=== PATIENT | female | born 1990 | race Caucasian/White ===

== ENCOUNTER → 2019-09-22 15:23 | Outpatient (CLI) | payer BC, SELFPAY ==
[2019-09-25 17:02] LABS: HPV Reflexed? NOT INDICATED
== END ==
PROVIDERS: Visit Provider Obstetrics & Gynecology
DX: Z12.4 Encounter for screening for malignant neoplasm of cervix (principal)
CPT/HCPCS: 88175; G0145

== ENCOUNTER 2021-02-24 22:25 | Emergency (ER) | payer BC, SELFPAY ==
[2021-02-24 22:27] VITALS: BP 105/75; PULSE 118; RESP 18; TEMP 36.2; O2SAT 94; BMI 23.8
--- NOTE | 2021-02-24 22:57 | RAD_ITS ---
STUDY: X-RAY - LEFT FOOT CLINICAL: Female, 30 years old. injury TECHNIQUE: 3 view(s) of the foot. COMPARISON: None. FINDINGS: Normal talus, calcaneus, and tarsal bones. Normal visualized subtalar, talonavicular, calcaneocuboid, tarsal and tarsometatarsal articulations. Normal metatarsi. Normal metatarsophalangeal joint of the great toe. Normal tibial and fibular sesamoid bones. Normal interphalangeal joint of the great toe. Normal phalanges of the great toe. Normal second through fifth metatarsophalangeal joints. Normal interphalangeal joints and phalanges of the lesser toes. The soft tissue structures are unremarkable. There is no demonstrated fracture. RAD/Foot min 3 Views IMPRESSION: Normal x-ray examination of the foot. Electronically Signed: Fatoumata Huber MD at 23:18 EDT , Service support ,
--- NOTE | 2021-02-24 23:37 | ED.DCSUM_ITS ---
History of Present Illness Chief Complaint: Lower Extremity Injury Informant: Patient Onset: Days - 10 Narrative: Patient presents for reevaluation and reinjury of left foot today. Initial injury on February 12 when a 50 pound Doberman pinscher stepped on her foot. She s tates she was seen at [place] and had x-rays that were negative. She had crutches and Brijesh wrap. She states she followed up and stated they only saw a wet read and there was no final read. She was getting better yesterday went for massage where they worked on her foot states reaggravated started noticed some swelling and discomfort this morning. This evening the dog excellently stepped on her foot again causing increasing pain. She took ibuprofen prior to arrival. Denies any past medical history. Denies any paresthesias. Prior similar symptoms: Yes Past Medical History - Allergies and Home Meds Allergies/Adverse Reactions: Allergies amoxicillin Adverse Reaction (Verified 02/24/21 22:26) Nausea Primary Care Physician: Care Physician,No Primary [Primary Care Provider] - Past Medical History: None Smoking Status: Never smoker Review of Systems General: Denies: Chills, Fever, Sweats Eyes: Denies: Visual changes - bilaterally, Diplopia ENT: Denies: Rhinorrhea, Sore throat Cardiovascular: Denies: Chest pain, Palpitations Respiratory: Denies: Dyspnea, Cough, Dyspnea on exertion Gastrointestinal: Denies: Abdominal pain, Nausea, Vomiting, Diarrhea, Melena, Hematochezia Genitourinary: Denies: Dysuria, Hematuria, Frequency Musculoskeletal: Reports: Arthralgias. Denies: Back pain, Extremity Pain Skin: Denies: Rash, Wounds Neurological: Denies: Headache, Weakness, Numbness Physical Exam Vital Signs/Narrative: Vital Signs Temp Pulse Resp BP Pulse Ox 02/24/21 22:27 97.2 F L 118 H 18 105/75 94 Inital Vital Signs reviewed: Yes General: Well nourished, Well developed, No Acute Distress Head: Normocephalic, Atraumatic Eyes: Perrl, EOMI ENT: Moist mucous membranes, No rhinorrhea Neck: Supple, Nontender Cardiovascular: Regular rhythm, No murmurs, Tachycardia Respiratory: No distress, CTA bilaterally, Chest nontender Abdomen: Soft, Nontender, Nondistended, Normal bowel sounds Back: Nontender, Normal Inspection Extremities: - - Left lower extremity: No knee or ankle bony tenderness. There is midfoot and proximal fifth base tenderness. Swelling of the foot. Skin intact. Neurovascular intact. Skin: Normal color, No rash Neurological: Alert, Oriented x3, Cranial nerves II-XII grossly intact, Normal Strength, Normal Sensation Psychological: Normal affect, Normal Mood Diagnostic/Tx/Re-eval 3 view x-ray of the left foot: No fracture or dislocation reviewed by myself and read by radiology. Clinical Impression(s) from Imaging Studies Foot X-Ray 02/24/21 22:57 IMPRESSION: Normal x-ray examination of the foot. Electronically Signed: Fatoumata Huber MD at 23:18 EDT , Service support , - Medical Decision Making Patient declined any additional medications. She declined ice. X-ray negative. Discussed with patient with her injury initially 10 days ago, there was no occult fractures from that due to no calcifications. She will be provided Aircast for stability should continue using her crutches she will continue NSAIDs [id number]. She will follow-up as an outpatient. All questions were answered. ED Disposition - Plan for ED Patient: Disposition: Home or Assisted Living Diagnosis: Contusion of left foot Instructions: ED Contusion, Lower Extremity Referrals: Care Physician,No Primary [Primary Care Provider] - Additional Instructions: Continue Brijesh wrap and Aircast crutches as needed. Use ibuprofen 600 mg every 6 hours for the next 2 days then as needed. Follow-up for reevaluation in 1-2 weeks if symptoms do not improve.
== END 2021-02-25 00:02 | disposition home or self-care (01) ==
PROVIDERS: Emergency Provider Emergency Medicine
DX: S90.32XA Contusion of left foot, initial encounter (principal); W54.8XXA Other contact with dog, initial encounter; Y93.89 Activity, other specified; Y92.89 Other specified places as the place of occurrence of the external cause; Y99.8 Other external cause status
CPT/HCPCS: 73630; 99283

== ENCOUNTER → 2021-04-12 16:06 | Outpatient (CLI) | payer BC, SELFPAY ==
[2021-04-12 15:34] VITALS: BMI 23.8
[2021-04-12 17:30] LABS: ALB/GLOB Ratio 0.6 RATIO (0.9-2.4); AST(SGOT) 12 U/L (15-37); Absolute Neutrophil Count 6.3 X10^3/uL (2.0-7.7); Alanine Aminotransfer ALT/SGPT 11 U/L (13-56); Albumin, Serum 3.2 g/dL (3.2-5.0); Alkaline Phosphatase 120 U/L (45-117); Anion Gap 6 (5-15); BUN 9 mg/dL (7-18); BUN/Creat Ratio 11.9 RATIO (10-20); Basophil# 0.06 X10^3/uL; Basophil% 0.5 % (0-1); Calcium,Total 10.7 mg/dL (8.5-10.1); Chloride 105 mmol/L (98-107); Creatinine, Serum 0.76 mg/dL (0.55-1.02); EST Glomerular Filtration Rate 96 mL/min (>60); Eosinophil# 0.05 X10^3/uL; Eosinophils% 0.5 % (0-5); Est Glom Filt Rate - Afr Amer 116 mL/min (>60); Globulin 5.1 g/dL (2.2-4.2); Glucose 81 mg/dL (74-106); Hematocrit 41.1 % (37-47); Hemoglobin 13.2 g/dL (12.0-15.0); Lymphocyte % 33.6 % (19-41); Mean Corp Hgb Conc 32.1 g/dL (32-36); Mean Corpuscular Volume 90.3 fL (81-99); Mean Platelet Vol. 10.5 fl (6.2-12.0); Monocyte# 0.87 X10^3/uL; Monocyte% 7.9 % (0-10); NRBC Flagged by Analyzer 0 % (0-5); Neutrophil % 57.3 % (47-70); Platelet Count 432 K/mm3 (150-450); Protein, Total 8.3 g/dL (6.4-8.2); RBC Distribution Width CV 12.6 % (11.6-14.6); RBC Distribution Width SD 41.9 fl (35.1-43.9); Red Blood Count 4.55 M/mm3 (4.2-5.4); Rheumatoid Factor < 10.0 IU/mL (<15); Sodium Level 136 mmol/L (136-145)
[2021-04-12 18:26] LABS: Erythrocyte Sedimentation Rate 66 mm/hr (0-30)
[2021-04-13 13:15] LABS: Ferritin 109 ng/mL (8-252)
[2021-04-15 15:11] LABS: CCP IgG Antibodies 4 units (0-19)
[2021-04-15 15:22] LABS: ANTINUCLEAR ANTIBODIES DIRECT Negative (Negative)
== END ==
PROVIDERS: PCP Internal Medicine; Referring Provider Internal Medicine; Visit Provider Internal Medicine
DX: M19.90 Unspecified osteoarthritis, unspecified site (principal); M79.672 Pain in left foot
CPT/HCPCS: 36415; 80053; 82728; 85025; 85652; 86038; 86140; 86200; 86225; 86235; 86431

== ENCOUNTER → 2023-11-15 | Outpatient (CLI) | payer BC, SELFPAY ==
--- OUTSIDE RECORDS SUMMARY | 2023-11-15 14:47 | XMS RPT_ITS | CCD ---
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 Name Role Phone Celeste CAMARENA, Dea Evans Primary Care Provider Dima CAMARENA, Amrik Ramirez Primary Care Provider Randi CAMARENA, Esa Primary Care Provider [phone] NUNU QUINN Attending Unavailable MOREMARCOT, AMRIK Primary Care Unavailable MOREAMRIK BOURGEOIS Attending Unavailable EFREN DAILEY Attending Unavailable ESA BURGOS Primary Care Unavailable MOREHART, AMRIK Primary Care Unavailable NUNU QUINN Attending Unavailable MOREHART, AMRIK Primary Care Unavailable SALIMA ORTEGA Attending Unavailbowen RUIZ MD, JEFF Attending Unavailable Allergies Allergy Classification Reported Allergen(s) Allergy Type Date of Onset Reaction(s) Facility (10 sources) Amoxicillin Drug Allergy 04-01-2019 Nausea Only [facility] Medications Current Medications Medication Drug Class(es) Dates Sig (Normalized) Sig (Original) drospirenone 3 mg / ethinyl estradiol 0.02 mg oral tablet (9 sources) Progestin, Estrogen Start: 07-31-2023 End: 07-30-2024 drospirenone-ethin yl estradiol (Nela, Gianvi) 3-0.02 MG tablet Take 1 tablet by mouth daily. Skip placebo pills 84 tablet 4 07/31/2023 07/30/2024 Active Completed/Discontinued Medications Medication Drug Class(es) Dates Sig (Normalized) Sig (Original) predniSONE 5 mg oral tablet (1 source) Start: 05-29-2021 predniSONE (DELTASONE) 5 mg tablet Indications: Reactive arthritis (HCC) Take one and one half tablet daily. Total of 7.5 mg. 100 tablet 2 05/29/2021 Active Problems Active Problems Problem Classification Problem Date Documented Da te Episodic/Chronic Anxiety disorders (20 sources) Generalized anxiety disorder; Translations: [Generalized anxiety disorder] Onset: 11-28-2022 Chronic Contraceptive and procreative management (3 sources) Encounter for other general counseling and advice on contraception; Translations: [Patient encounter status] Onset: 11-28-2022 Episodic Headache; including migraine (10 sources) Intractable menstrual status migrainosus; Translations: [Menstrual migraine, intractable, with status migrainosus] Onset: 02-13-2023 02-13-2023 Chronic Headache; including migraine (2 sources) Headache; Translations: [Nonintractable headache, unspecified chronicity pattern, unspecified headache type] Episodic Headache; including migraine (2 sources) Headache; including migraine; Translations: [Headache, unspecified] Onset: 01-29-2023 Infective arthritis and osteomyelitis (except that caused by tuberculosis or sexually transmitted disease) (2 sources) Reactive arthritis; 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, unspecified site] Onset: 05-29-2021 Episodic Nonspecific chest pain (1 source) Chest pain; Translations: [Other chest pain] Episodic Other gastrointestinal disorders (2 sources) Diarrhea; Translations: [Diarrhea, unspecified] Onset: 05-29-2021 Episodic Viral infection (3 sources) Human papilloma virus infection; Translations: [Papillomavirus as the cause of diseases classified elsewhere] Onset: 02-20-2023 Episodic Past or Other Problems Problem Classification Problem Date Documented Da te Episodic/Chronic Other screening for suspected conditions (not mental disorders or infectious disease) (2 sources) Encounter for screening for malignant neoplasm of cervix; Translations: [Encounter for screening for malignant neoplasm of cervix] Onset: 12-19-2022 Episodic Results Test Name Value Interpretation Reference Range Facil ity Vital Signs Date Time Vital Sign Value Performing Clinician Faci lity 07-31-2023 14:32-0400 Body mass index (BMI) [Ratio] 28.55 kg/m2 Nunu Quinn MD Work Phone: [facility] 07-31-2023 14:32-0400 Body weight 79.02 kg Nunu Quinn MD Work Phone: [facility] 07-31-2023 14:32-0400 Diastolic blood pressure 70 mm[Hg] Nunu Quinn MD Work Phone: [facility] 07-31-2023 14:32-0400 Heart rate 85 /min Nunu Quinn MD Work Phone: [facility] 07-31-2023 14:32-0400 Systolic blood pressure 116 mm[Hg] Nunu Quinn MD Work Phone: [facility] 05-01-2023 15:45-0400 Body height 166.4 cm Amrik Ch MD Work Phone: [facility] 05-01-2023 15:45-0400 Body mass index (BMI) [Ratio] 27.2 kg/m2 Amrik Ch MD Work Phone: [facility] 05-01-2023 15:45-0400 Body temperature 98.01 [degF] Amrik Ch MD Work Phone: [facility] 05-01-2023 15:45-0400 Body weight 75.3 kg Amrik Ch MD Work Phone: [facility] 05-01-2023 15:45-0400 Diastolic blood pressure 69 mm[Hg] Amrik Ch MD Work Phone: [facility] 05-01-2023 15:45-0400 Heart rate 72 /min Amrik Ch MD Work Phone: [facility] 05-01-2023 15:45-0400 Systolic blood pressure 107 mm[Hg] Amrik Ch MD Work Phone: [facility] 02-20-2023 15:25-0400 Body height 166.4 cm Nunu Quinn MD Work Phone: [facility] 02-20-2023 15:25-0400 Body mass index (BMI) [Ratio] 25.89 kg/m2 Nunu Quinn MD Work Phone: [facility] 02-20-2023 15:25-0400 Body weight 71.67 kg Nunu Quinn MD Work Phone: [facility] 02-20-2023 15:25-0400 Diastolic blood pressure 80 mm[Hg] Nunu Quinn MD Work Phone: [facility] 02-20-2023 15:25-0400 Heart rate 89 /min Nunu Quinn MD Work Phone: [facility] 02-20-2023 15:25-0400 Systolic blood pressure 126 mm[Hg] Nunu Quinn MD Work Phone: [facility] 01-29-2023 15:44-0400 Body height 166.4 cm Amrik Ch MD Work Phone: [facility] 01-29-2023 15:44-0400 Body mass index (BMI) [Ratio] 25.89 kg/m2 Amrik Ch MD Work Phone: [facility] 01-29-2023 15:44-0400 Body temperature 97.7 [degF] Amrik hC MD Work Phone: [facility] 01-29-2023 15:44-0400 Body weight 71.67 kg Amrik Ch MD Work Phone: [facility] 01-29-2023 15:44-0400 Diastolic blood pressure 72 mm[Hg] Amrik Ch MD Work Phone: [facility] 01-29-2023 15:44-0400 Heart rate 69 /min Amrik Ch MD Work Phone: [facility] 01-29-2023 15:44-0400 Systolic blood pressure 114 mm[Hg] Amrik Ch MD Work Phone: [facility] Encounters Encounter Date Encounter Type Care Provider Facility Start: 11-12-2023 End: 11-13-2023 ambulatory JEFF RUIZ MD Facility:[facility] Start: 07-31-2023 End: 07-31-2023 Office outpatient visit 15 minutes Nunu Quinn MD Work Phone: [facility] Procedures Date Procedure Procedure Detail Performing Clinician Start: 05-01-2023 Adult depression scr eening assessment Amrik Ch MD Work Phone: Start: 02-20-2023 Urine test visual color cmprsn meths Nunu Quinn MD Work Phone: Start: 12-19-2022 Microscopic observat ion [Identifier] in Cervix by Cyto stain Amrik Ch MD Work Phone: Plan of Treatment Date Care Activity Detail Author Start: 2041 Zoster Vaccines (1 of 2) Zoste r Vaccines (1 of 2) [facility] Start: 12-19-2027 Screening for malign ant neoplasm of cervix [facility] Start: 12-19-2025 Screening for malign ant neoplasm of cervix Pap Smear [facility] Start: 05-01-2024 Depression Screening Depression Scre ening [facility] Start: 12-25-2023 End: 12-25-2023 Patient encounter procedure [facility] Start: 07-31-2023 End: 07-31-2023 Patient encounter procedure 07/31/2023 2:30 PM EDT Office Visit [facility] [address] [place] [address] Nunu Quinn MD [address] [place] [address] [facility] Start: 07-19-2023 Influenza vaccination [facility] Start: 05-17-2023 Influenza vaccination Influenza Vacc ine (#1) [facility] Payers Date Payer Category Payer Unknown [id number] 2022 Unknown [id number] 2021 Unknown [employer] PPO [id number] 2021-Present PPO [id number] 1991 Unknown [id number] Social History Date Type Detail [facility] Start: 1990 Sex Assigned At Not on file [facility] Start: 01-18-2023 End: 07-31-2023 Exposure to SARS-CoV-2 (event) Not sure [facility] Start: 11-28-2022 [facility] Start: 11-28-2022 Tobacco use and exposure Smoke less tobacco non-user [facility] Start: 01-29-2023 End: 07-31-2023 Alcohol intake Current drinker of alcohol (finding) [facility] Start: 01-29-2023 End: 05-01-2023 Alcohol intake [facility] Start: 12-19-[address] [facility] Start: 1990 Sex Assigned At Female [facility] Start: 02-20-2023 End: 05-01-2023 Tobacco use panel [facility] Start: 11-28-2022 Gender identity Identifies as female gender (finding) [facility] Start: 11-28-2022 Sexual orientation Heterosexual (fin ding) [facility] Clinical Notes 05-29-2021 to 07-31-2023 Nunu Quinn MD - 07/31/2023 2:30 PM Cristal Linda LPN - 05/01/2023 3:30 PM Ja Ch MD - 05/01/2023 3:30 PM Cristal Linda LPN - 05/01/2023 3:30 PM EDTPatient Instructions Note Date & Type Note Facility 07-31-2023 History of Present illness Narrative HPI: Patient presents today to talk about options for control. She has been on control, OCPs, since her teens for regulation of her heavy cycles as well as menstrual migraines. Her symptoms are markedly improved on OCPs. Pt has questions about prolonged OCP use and Mirena. REVIEW OF SYSTEMS: Gen: denies weight loss, fatigue, fevers/chills : see HPI PHYSICAL EXAM: Vitals: 07/31/23 1432 BP: 116/70 Pulse: 85 Gen: normal appearance, NAD Neuro: AAOx3 Psych: normal affect Lungs: nonlabored breathing Chest: regular rate Anrdew was seen today for follow-up. Diagnoses and all orders for this visit: control counseling (Primary) Intractable menstrual migraine without status migrainosus Other orders - drospirenone-ethinyl estradiol (Nela, Gianvi) 3-0.02 MG tablet; Take 1 tablet by mouth daily. Skip placebo pills PLAN: -Answered all the questions -Plan for OCPs (desires Nela) for menstrual migraine suppression and will plan on IUD as well for period control and contraception -not planning in the future On this date, 07/31/23 I have spent 20 minutes reviewing previous notes, test results and face to face with the patient discussing the diagnosis and importance of compliance with the treatment plan as well as documenting on the day of the visit. documented in this encounter [facility] 05-01-2023 History of Present illness Narrative Pt asked if they have been to specialist,been in ER /hospitalized or had testing since last visit. No Images from the original note were not included. [facility] [address] [facility] [address] Dept: [phone] Dept Loc: [phone] Visit type: Established Reason for Visit: Follow-up (Discuss anxiety and meds) Assessment and Plan 1. Generalized anxiety disorder Continue lexapro 10 mg daily. Current treatment plan is effective, no change in therapy, orders and follow up as documented in EMR, reviewed compliance with lifestyle measures, reviewed diet, exercise and weight control, reviewed medications and side effects in detail Patient voiced full understanding and all questions were answered. Costs of various treatment options were considered in formulating this treatment plan with the patient. Patient was involved and agreeable in shared decision making. Follow up in about 6 months (around 10/31/2023) for anxiety . Subjective HPI Patient here for follow up for increased anxiety - lexapro is helping, says her states that she is easier to work with. Able to think more clearer, no further anger. Things going better - settled in house and job, mom tumor is gone after chemotherapy and she had a normal colposcopy. Not having to take hydroxyzine. Has been using meditation adrian, drinking more water, and exercising. Review of Systems Constitutional: Negative for activity change, chills and fever. HENT: Negative for congestion and rhinorrhea. Eyes: Negative for visual disturbance. Respiratory: Negative for cough and shortness of breath. Cardiovascular: Negative for leg swelling. Gastrointestinal: Negative for abdominal pain, constipation, diarrhea, nausea and vomiting. Endocrine: Negative for polyphagia and polyuria. Genitourinary: Negative for dysuria and urgency. Musculoskeletal: Negative for arthralgias and myalgias. Neurological: Negative for tremors, light-headedness and headaches. Allergies Allergen Reactions Amoxicillin Nausea Only nausea Outpatient Medications Prior to Visit Medication Sig Dispense Refill escitalopram (Lexapro) 10 MG tablet Take 1 tablet (10 mg) by mouth daily. 90 tablet 1 hydrOXYzine HCl (Atarax) 50 MG tablet take 1 tablet by mouth four times a day UNTIL DIRECTED TO STOP. TAKE ONLY NEEDED. norgestimate-ethinyl estradiol (Sprintec 28) 0.25-35 MG-MCG tablet Take 1 tablet by mouth daily. Skip placebo pills 112 tablet 2 drospirenone-ethinyl estradiol (Nela, Gianvi) 3-0.02 MG tablet Take 1 tablet by mouth daily. Skip placebo pills 112 tablet 3 No facility-administered medications prior to visit. Patient Active Problem List Diagnosis Generalized anxiety disorder Headache, menstrual migraine, intractable, with status migrainosus Past Medical History: Diagnosis Date Anxiety Headache Social History Tobacco Use Smoking status: Never Smokeless tobacco: Never Substance Use Topics Alcohol use: Yes Alcohol/week: 1.0 standard drink of alcohol Types: 1 Glasses of wine per week Comment: social No past surgical history on file. Family History Problem Relation Name Age of Onset Heart disease Father Cancer Mother 66 uterine Health Maintenance Topic Date Due HIV Screening Never done Varicella Vaccines (1 of 2 - 2-dose childhood series) Never done Depression Screening Never done Hepatitis C Screening Never done DTaP/Tdap/Td Vaccines (1 - Tdap) Never done COVID-19 Vaccine (2 - Booster for Jomar series) 07/07/2021 Influenza Vaccine (Season Ended) 2023 Cervical Cancer Screening 12/19/2027 Zoster Vaccines (1 of 2) 2041 Hepatitis B Vaccines Completed MMR Vaccines Completed HIB Vaccines Aged Out IPV Vaccines Aged Out Hepatitis A Vaccines Aged Out Meningococcal Vaccine Aged Out Rotavirus Vaccines Aged Out HPV Vaccines Aged Out Pneumococcal Vaccine: Pediatrics (0 to 5 Years) and At-Risk Patients (6 to 64 Years) Aged Out Objective BP 107/69 Pulse 72 Temp 36.7 C (98 F) Ht 5' 5.5 (1.664 m) Wt 166 lb (75.3 kg) BMI 27.20 kg/m Physical Exam Vitals and nursing note reviewed. HENT: Mouth/Throat: Pharynx: Oropharynx is clear. Eyes: Conjunctiva/sclera: Conjunctivae normal. Cardiovascular: Rate and Rhythm: Normal rate. Heart sounds: No murmur heard. Pulmonary: Effort: Pulmonary effort is normal. No respiratory distress. Breath sounds: No wheezing or rales. Abdominal: General: Bowel sounds are normal. Tenderness: There is no abdominal tenderness. Skin: General: Skin is warm. Capillary Refill: Capillary refill takes less than 2 seconds. Neurological: General: No focal deficit present. Mental Status: She is alert. Data Reviewed and Summarized Labs: No results found for: WBC, HGB, HCT, PLT, CHOL, TRIG, HDL, LDLDIRECT, ALT, AST, NA, K, CL, CREATININE, BUN, CO2, TSH, PSA, INR, GLUF Results for orders placed or performed in visit on 02/20/23 POC , urine Result Value Ref Range Preg Test, Ur Negative Negative POSITIVE QC Pass NEGATIVE QC Pass HCG LOT NUMBER pass Tissue exam Result Value Ref Range Case Report Surgical Pathology Case: [id number] Authorizing Provider: Nunu Quinn MD Collected: 02/20/2023 [id number] Ordering Location: [facility] Received: 02/21/2023 [facility] Pathologist: Sam Mark MD Specimens: A) - Cervix, 12 o clock B) - Cervix, 6 o clock C) - Cervix, ECC Final Diagnosis A. CERVIX, 12:00, BIOPSY: - BENIGN ENDOCERVICAL MUCOSA WITH CHRONIC INFLAMMATION B. CERVIX, 6:00, BIOPSY: - BENIGN ENDOCERVICAL MUCOSA WITH CHRONIC INFLAMMATION C. 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 Received in formalin labeled cervix 12 o'clock is an irregularly-shaped segment of pink-welch soft tissue measuring 0.3 x 0.3 x 0.2 cm. Submitted in one cassette. B. Received in formalin labeled cervix 6 o'clock is an irregularly-shaped fragment of pink-white soft tissue measuring 0.5 x 0.4 x 0.3 cm. Submitted in one cassette. C. Received in formalin labeled endocervical, ECC is cloudy fluid submitted for cell block preparation in one cassette. Disclaimer Disclaimer: The following statement applies to all immunohistochemistry, in situ hybridization, molecular studies, and immunofluorescence testing. The use of one or more reagents in the above tests is regulated as an analyte specific reagent (ASR). These tests were developed and their performance characteristics determined by the clinical laboratories of [facility]. They have not been cleared by the US Food and Drug Administration (FDA). The FDA has determined that such clearance or approval is not necessary. All the above immunostains were performed on paraffin embedded tissue. Appropriate positive and negative controls (where applicable) were run in parallel with the patient's specimen; these controls showed expected staining pattern, with acceptable intensity of staining. Immunohistochemical assays have not been validated on decalcified tissues. Results should be interpreted with caution given the raised possibility of false negativity on decalcified specimens. Specimen Description . Imaging/Testing: No image results found. Amrik Ch [facility] 05/01/23 4:40 PM documented in this encounter [facility] 05-01-2023 History of Present illness Narrative Pt asked if they have been to specialist,been in ER /hospitalized or had testing since last visit. No Images from the original note were not included. [address] [address] Dept: [phone] Dept Loc: [phone] Visit type: Established Reason for Visit: Follow-up (Discuss anxiety and meds) Assessment and Plan 1. Generalized anxiety disorder Continue lexapro 10 mg daily. Current treatment plan is effective, no change in therapy, orders and follow up as documented in EMR, reviewed compliance with lifestyle measures, reviewed diet, exercise and weight control, reviewed medications and side effects in detail Patient voiced full understanding and all questions were answered. Costs of various treatment options were considered in formulating this treatment plan with the patient. Patient was involved and agreeable in shared decision making. Follow up in about 6 months (around 10/31/2023) for anxiety . Subjective HPI Patient here for follow up for increased anxiety - lexapro is helping, says her states that she is easier to work with. Able to think more clearer, no further anger. Things going better - settled in house and job, mom tumor is gone after chemotherapy and she had a normal colposcopy. Not having to take hydroxyzine. Has been using meditation adrian, drinking more water, and exercising. Review of Systems Constitutional: Negative for activity change, chills and fever. HENT: Negative for congestion and rhinorrhea. Eyes: Negative for visual disturbance. Respiratory: Negative for cough and shortness of breath. Cardiovascular: Negative for leg swelling. Gastrointestinal: Negative for abdominal pain, constipation, diarrhea, nausea and vomiting. Endocrine: Negative for polyphagia and polyuria. Genitourinary: Negative for dysuria and urgency. Musculoskeletal: Negative for arthralgias and myalgias. Neurological: Negative for tremors, light-headedness and headaches. Allergies Allergen Reactions Amoxicillin Nausea Only nausea Outpatient Medications Prior to Visit Medication Sig Dispense Refill escitalopram (Lexapro) 10 MG tablet Take 1 tablet (10 mg) by mouth daily. 90 tablet 1 hydrOXYzine HCl (Atarax) 50 MG tablet take 1 tablet by mouth four times a day UNTIL DIRECTED TO STOP. TAKE ONLY NEEDED. norgestimate-ethinyl estradiol (Sprintec 28) 0.25-35 MG-MCG tablet Take 1 tablet by mouth daily. Skip placebo pills 112 tablet 2 drospirenone-ethinyl estradiol (Nela, Gianvi) 3-0.02 MG tablet Take 1 tablet by mouth daily. Skip placebo pills 112 tablet 3 No facility-administered medications prior to visit. Patient Active Problem List Diagnosis Generalized anxiety disorder Headache, menstrual migraine, intractable, with status migrainosus Past Medical History: Diagnosis Date Anxiety Headache Social History Tobacco Use Smoking status: Never Smokeless tobacco: Never Substance Use Topics Alcohol use: Yes Alcohol/week: 1.0 standard drink of alcohol Types: 1 Glasses of wine per week Comment: social No past surgical history on file. Family History Problem Relation Name Age of Onset Heart disease Father Cancer Mother 66 uterine Health Maintenance Topic Date Due HIV Screening Never done Varicella Vaccines (1 of 2 - 2-dose childhood series) Never done Depression Screening Never done Hepatitis C Screening Never done DTaP/Tdap/Td Vaccines (1 - Tdap) Never done COVID-19 Vaccine (2 - Booster for Jomar series) 07/07/2021 Influenza Vaccine (Season Ended) 2023 Cervical Cancer Screening 12/19/2027 Zoster Vaccines (1 of 2) 2041 Hepatitis B Vaccines Completed MMR Vaccines Completed HIB Vaccines Aged Out IPV Vaccines Aged Out Hepatitis A Vaccines Aged Out Meningococcal Vaccine Aged Out Rotavirus Vaccines Aged Out HPV Vaccines Aged Out Pneumococcal Vaccine: Pediatrics (0 to 5 Years) and At-Risk Patients (6 to 64 Years) Aged Out Objective BP 107/69 Pulse 72 Temp 36.7 C (98 F) Ht 5' 5.5 (1.664 m) Wt 166 lb (75.3 kg) BMI 27.20 kg/m Physical Exam Vitals and nursing note reviewed. HENT: Mouth/Throat: Pharynx: Oropharynx is clear. Eyes: Conjunctiva/sclera: Conjunctivae normal. Cardiovascular: Rate and Rhythm: Normal rate. Heart sounds: No murmur heard. Pulmonary: Effort: Pulmonary effort is normal. No respiratory distress. Breath sounds: No wheezing or rales. Abdominal: General: Bowel sounds are normal. Tenderness: There is no abdominal tenderness. Skin: General: Skin is warm. Capillary Refill: Capillary refill takes less than 2 seconds. Neurological: General: No focal deficit present. Mental Status: She is alert. Data Reviewed and Summarized Labs: No results found for: WBC, HGB, HCT, PLT, CHOL, TRIG, HDL, LDLDIRECT, ALT, AST, NA, K, CL, CREATININE, BUN, CO2, TSH, PSA, INR, GLUF Results for orders placed or performed in visit on 02/20/23 POC , urine Result Value Ref Range Preg Test, Ur Negative Negative POSITIVE QC Pass NEGATIVE QC Pass HCG LOT NUMBER pass Tissue exam Result Value Ref Range Case Report Surgical Pathology Case: [id number] Authorizing Provider: Nunu Quinn MD Collected: 02/20/2023 [id number] Ordering Location: [facility] Received: 02/21/2023 5719 [facility] Pathologist: Sam Mark MD Specimens: A) - Cervix, 12 o clock B) - Cervix, 6 o clock C) - Cervix, ECC Final Diagnosis A. CERVIX, 12:00, BIOPSY: - BENIGN ENDOCERVICAL MUCOSA WITH CHRONIC INFLAMMATION B. CERVIX, 6:00, BIOPSY: - BENIGN ENDOCERVICAL MUCOSA WITH CHRONIC INFLAMMATION C. 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 Received in formalin labeled cervix 12 o'clock is an irregularly-shaped segment of pink-welch soft tissue measuring 0.3 x 0.3 x 0.2 cm. Submitted in one cassette. B. Received in formalin labeled cervix 6 o'clock is an irregularly-shaped fragment of pink-white soft tissue measuring 0.5 x 0.4 x 0.3 cm. Submitted in one cassette. C. Received in formalin labeled endocervical, ECC is cloudy fluid submitted for cell block preparation in one cassette. Disclaimer Disclaimer: The following statement applies to all immunohistochemistry, in situ hybridization, molecular studies, and immunofluorescence testing. The use of one or more reagents in the above tests is regulated as an analyte specific reagent (ASR). These tests were developed and their performance characteristics determined by the clinical laboratories of [facility]. They have not been cleared by the US Food and Drug Administration (FDA). The FDA has determined that such clearance or approval is not necessary. All the above immunostains were performed on paraffin embedded tissue. Appropriate positive and negative controls (where applicable) were run in parallel with the patient's specimen; these controls showed expected staining pattern, with acceptable intensity of staining. Immunohistochemical assays have not been validated on decalcified tissues. Results should be interpreted with caution given the raised possibility of false negativity on decalcified specimens. Specimen Description . Imaging/Testing: No image results found. Amrik Ch [facility] 05/01/23 4:40 PM INDIRECT SUPERVISION THIS SERVICE IS TO BE BILLED UNDER THE PRIMARY CARE EXCEPTION ([facility] -) During or immediately after this visit, I discussed this case with the treating resident. Our discussion included the history obtained by the resident, the resident's exam findings, and the resident's treatment plan. The resident's note reflects the information we discussed, and I agree with the resident's assessment and treatment plan. documented in this encounter [facility] 03-13-2023 Note Addended by: Brittany QUINN on: 03/13/2023 01:11 PM Modules accepted: Orders [facility] 03-13-2023 Telephone encounter Note Different rx sent. Ok with if ok with patient. [facility] 03-13-2023 Miscellaneous Notes Addended by: NUNU QUINN on: 03/13/2023 01:11 PM Modules accepted: Orders Different rx sent. Ok with if ok with patient. Appealed and denied. Please advise if we can change ? Patient calling for status of prior auth. Still waiting to get prescription filled. Prior Auth OCP initiated through [employer]. documented in this encounter [facility] 03-13-2023 Telephone encounter Note Appealed and denied. Please advise if we can change ? [facility] 03-12-2023 Telephone encounter Note Patient calling for status of prior auth. Still waiting to get prescription filled. [facility] 03-12-2023 Miscellaneous Notes Patient calling for status of prior auth. Still waiting to get prescription filled. Prior Auth OCP initiated through [employer]. documented in this encounter [facility] 02-20-2023 History of Present illness Narrative Colposcopy for PAP: NSIL with HR HPV 16 Pre-Colposcopy consent signed. Possible risks explained to patient who states she understands. Procedure: A speculum was placed into the vagina and the cervix was easily visualized. Acetic acid was applied to the cervix. The entire squamocolumnar junction was seen. A biopsy was taken at the 12 and 6 O'clock position. An endocervical curettage was done. Silver nitrate was applied Hemostasis confirmed. 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 Pre-procedural examination POC , urine Plan: -f/u 2 wk for results documented in this encounter [facility] 02-13-2023 Telephone encounter Note Prior Auth OCP initiated through [employer]. [facility] 01-29-2023 History of Present illness Narrative Pt asked if they have been to specialist,been in ER /hospitalized or had testing since last visit. No Patient was able to ambulate safely to the examination room. Provider was not notified of possible fall risk Images from the original note were not included. [facility] [address] [place] [address] Dept: [phone] Dept Loc: [phone] Visit type: Established Reason for Visit: Follow-up (2 month medication follow up/) Assessment and Plan 1. Generalized anxiety disorder 2. Nonintractable headache, unspecified chronicity pattern, unspecified headache type - continue lexapro - has not seen counselor - improvement with symptoms - anxiety controlled, no longer feels off. - Headaches have improved with control. Patient was involved and agreeable in shared decision making. Follow up in about 3 months (around 05/01/2023) for depression and anxiety. Subjective HPI Patient feels like she is doing a lot better. Life is still stressful - new job and was found to have HPV 16, is going to have a colposcopy in the future. Mother recently diagnosed with uterine cancer - on 02/21 chemo, getting a little more symptoms. Does not have any HPV vaccine. Headaches have improved since she has been placed on control, will skip periods and get them every 2-3 months. Review of Systems No fever or chills No cough or congestion Allergies Allergen Reactions Amoxicillin Nausea Only nausea Outpatient Medications Prior to Visit Medication Sig Dispense Refill drospirenone-ethinyl estradiol (Nela, Gianvi) 3-0.02 MG tablet Take 1 tablet by mouth daily. Skip placebo pills 112 tablet 3 escitalopram (Lexapro) 10 MG tablet Take 1 tablet (10 mg) by mouth daily. 90 tablet 1 hydrOXYzine HCl (Atarax) 50 MG tablet take 1 tablet by mouth four times a day UNTIL DIRECTED TO STOP. TAKE ONLY NEEDED. No facility-administered medications prior to visit. Patient Active Problem List Diagnosis Generalized anxiety disorder Past Medical History: Diagnosis Date Anxiety Headache Social History Tobacco Use Smoking status: Never Smokeless tobacco: Never Substance Use Topics Alcohol use: Yes Alcohol/week: 1.0 standard drink Types: 1 Glasses of wine per week Comment: social History reviewed. No pertinent surgical history. Family History Problem Relation Name Age of Onset Heart disease Father Cancer Mother 66 uterine Health Maintenance Topic Date Due HIV Screening Never done Varicella Vaccines (1 of 2 - 2-dose childhood series) Never done Hepatitis C Screening Never done DTaP/Tdap/Td Vaccines (1 - Tdap) Never done COVID-19 Vaccine (2 - Booster for Jomar series) 07/07/2021 Influenza Vaccine (1) 05/17/2023 (Originally 07/19/2022) Cervical Cancer Screening 12/19/2027 Zoster Vaccines (1 of 2) 2041 Hepatitis B Vaccines Completed MMR Vaccines Completed HIB Vaccines Aged Out IPV Vaccines Aged Out Hepatitis A Vaccines Aged Out Meningococcal Vaccine Aged Out Rotavirus Vaccines Aged Out HPV Vaccines Aged Out Pneumococcal Vaccine: Pediatrics (0 to 5 Years) and At-Risk Patients (6 to 64 Years) Aged Out Objective BP 114/72 (BP Location: Left arm, Patient Position: Sitting) Pulse 69 Temp 36.5 C (97.7 F) (Temporal) Ht 5' 5.5 (1.664 m) Wt 158 lb (71.7 kg) LMP 01/01/2023 BMI 25.89 kg/m Physical Exam Vitals and nursing note reviewed. HENT: Mouth/Throat: Pharynx: Oropharynx is clear. Eyes: Conjunctiva/sclera: Conjunctivae normal. Cardiovascular: Rate and Rhythm: Normal rate. Heart sounds: No murmur heard. Pulmonary: Effort: Pulmonary effort is normal. No respiratory distress. Breath sounds: No wheezing or rales. Abdominal: General: Bowel sounds are normal. Tenderness: There is no abdominal tenderness. Skin: General: Skin is warm. Capillary Refill: Capillary refill takes less than 2 seconds. Neurological: General: No focal deficit present. Mental Status: She is alert. Data Reviewed and Summarized Labs: No results found for: WBC, HGB, HCT, PLT, CHOL, TRIG, HDL, LDLDIRECT, ALT, AST, NA, K, CL, CREATININE, BUN, CO2, TSH, PSA, INR, GLUF Results for orders placed or performed in visit on 12/19/22 HPV High Risk PCR Specimen: Cervical Swab; ThinPrep Screen Result Value Ref Range HPV Type 18 DNA Not Detected Not Detected HPV Type 16 DNA Detected (A) Not Detected Other High Risk HPV Type Not Detected Not Detected HPV Type 16,18, and others DNA Pap Smear Result Value Ref Range Case Report Gynecologic Cytology Case: [id number] Authorizing Provider: Nunu Quinn MD Collected: 12/19/2022 1456 Ordering Location: [facility] Received: 12/20/20222010 [facility] First Screen: Dawna [place], [place] Rescreen: LUIZ Watkins Specimen: ThinPrep, Pap, Cervical/Endocervical Specimen Adequacy The specimen is satisfactory for evaluation. No endocervical/transformation zone present. Interpretation NEGATIVE FOR SQUAMOUS INTRAEPITHELIAL LESION OR MALIGNANCY. Additional Information Gynecologic cytology smear evaluation is subject to false positive and false negative interpretation as evidenced by published data. Your patient's Pap test results should thus be interpreted in conjunction with their clinical history and physical examination. Case Screening Location [facility], [address] [place] [id number]; CLIA: [id number]; Joint Commission: [id number]; CAP: [id number] Imaging/Testing: No image results found. Amrik Ch [facility] 01/29/23 4:11 PM documented in this encounter [facility] 01-29-2023 History of Present illness Narrative Pt asked if they have been to specialist,been in ER /hospitalized or had testing since last visit. No Patient was able to ambulate safely to the examination room. Provider was not notified of possible fall risk Images from the original note were not included. [facility] [address] [place] [address] Dept: [phone] Dept Loc: [phone] Visit type: Established Reason for Visit: Follow-up (2 month medication follow up/) Assessment and Plan 1. Generalized anxiety disorder 2. Nonintractable headache, unspecified chronicity pattern, unspecified headache type - continue lexapro - has not seen counselor - improvement with symptoms - anxiety controlled, no longer feels off. - Headaches have improved with control. Patient was involved and agreeable in shared decision making. Follow up in about 3 months (around 05/01/2023) for depression and anxiety. Subjective HPI Patient feels like she is doing a lot better. Life is still stressful - new job and was found to have HPV 16, is going to have a colposcopy in the future. Mother recently diagnosed with uterine cancer - on 02/21 chemo, getting a little more symptoms. Does not have any HPV vaccine. Headaches have improved since she has been placed on control, will skip periods and get them every 2-3 months. Review of Systems No fever or chills No cough or congestion Allergies Allergen Reactions Amoxicillin Nausea Only nausea Outpatient Medications Prior to Visit Medication Sig Dispense Refill drospirenone-ethinyl estradiol (Nela, Gianvi) 3-0.02 MG tablet Take 1 tablet by mouth daily. Skip placebo pills 112 tablet 3 escitalopram (Lexapro) 10 MG tablet Take 1 tablet (10 mg) by mouth daily. 90 tablet 1 hydrOXYzine HCl (Atarax) 50 MG tablet take 1 tablet by mouth four times a day UNTIL DIRECTED TO STOP. TAKE ONLY NEEDED. No facility-administered medications prior to visit. Patient Active Problem List Diagnosis Generalized anxiety disorder Past Medical History: Diagnosis Date Anxiety Headache Social History Tobacco Use Smoking status: Never Smokeless tobacco: Never Substance Use Topics Alcohol use: Yes Alcohol/week: 1.0 standard drink Types: 1 Glasses of wine per week Comment: social History reviewed. No pertinent surgical history. Family History Problem Relation Name Age of Onset Heart disease Father Cancer Mother 66 uterine Health Maintenance Topic Date Due HIV Screening Never done Varicella Vaccines (1 of 2 - 2-dose childhood series) Never done Hepatitis C Screening Never done DTaP/Tdap/Td Vaccines (1 - Tdap) Never done COVID-19 Vaccine (2 - Booster for Jomar series) 07/07/2021 Influenza Vaccine (1) 05/17/2023 (Originally 07/19/2022) Cervical Cancer Screening 12/19/2027 Zoster Vaccines (1 of 2) 2041 Hepatitis B Vaccines Completed MMR Vaccines Completed HIB Vaccines Aged Out IPV Vaccines Aged Out Hepatitis A Vaccines Aged Out Meningococcal Vaccine Aged Out Rotavirus Vaccines Aged Out HPV Vaccines Aged Out Pneumococcal Vaccine: Pediatrics (0 to 5 Years) and At-Risk Patients (6 to 64 Years) Aged Out Objective BP 114/72 (BP Location: Left arm, Patient Position: Sitting) Pulse 69 Temp 36.5 C (97.7 F) (Temporal) Ht 5' 5.5 (1.664 m) Wt 158 lb (71.7 kg) LMP 01/01/2023 BMI 25.89 kg/m Physical Exam Vitals and nursing note reviewed. HENT: Mouth/Throat: Pharynx: Oropharynx is clear. Eyes: Conjunctiva/sclera: Conjunctivae normal. Cardiovascular: Rate and Rhythm: Normal rate. Heart sounds: No murmur heard. Pulmonary: Effort: Pulmonary effort is normal. No respiratory distress. Breath sounds: No wheezing or rales. Abdominal: General: Bowel sounds are normal. Tenderness: There is no abdominal tenderness. Skin: General: Skin is warm. Capillary Refill: Capillary refill takes less than 2 seconds. Neurological: General: No focal deficit present. Mental Status: She is alert. Data Reviewed and Summarized Labs: No results found for: WBC, HGB, HCT, PLT, CHOL, TRIG, HDL, LDLDIRECT, ALT, AST, NA, K, CL, CREATININE, BUN, CO2, TSH, PSA, INR, GLUF Results for orders placed or performed in visit on 12/19/22 HPV High Risk PCR Specimen: Cervical Swab; ThinPrep Screen Result Value Ref Range HPV Type 18 DNA Not Detected Not Detected HPV Type 16 DNA Detected (A) Not Detected Other High Risk HPV Type Not Detected Not Detected HPV Type 16,18, and others DNA Pap Smear Result Value Ref Range Case Report Gynecologic Cytology Case: [id number] Authorizing Provider: Nunu Quinn MD Collected: 12/19/2022 1456 Ordering Location: [facility] Received: 12/20/20222010 [facility] First Screen: Dawna Fletcher [place], [place] Rescreen: Evonne Kline, LIUZ Specimen: ThinPrep, Pap, Cervical/Endocervical Specimen Adequacy The specimen is satisfactory for evaluation. No endocervical/transformation zone present. Interpretation NEGATIVE FOR SQUAMOUS INTRAEPITHELIAL LESION OR MALIGNANCY. Additional Information Gynecologic cytology smear evaluation is subject to false positive and false negative interpretation as evidenced by published data. Your patient's Pap test results should thus be interpreted in conjunction with their clinical history and physical examination. Case Screening Location [facility], [address] [place] [id number]; CLIA: [id number]; Joint Commission: [id number]; CAP: [id number] Imaging/Testing: No image results found. Amrik Ch [facility] Medicine 01/29/23 4:11 PM INDIRECT SUPERVISION THIS SERVICE IS TO BE BILLED UNDER THE PRIMARY CARE EXCEPTION ([facility]) During or immediately after this visit, I discussed this case with the treating resident. Our discussion included the history obtained by the resident, the resident's exam findings, and the resident's treatment plan. The resident's note reflects the information we discussed, and I agree with the resident's assessment and treatment plan. -Salima Ortega MD, [facility] Family Medicine documented in this encounter [facility] 09-11-2021 Note HNO ID: [id number] Author: Sarita Russ MD Service: ? Author Type: Physician Type: Progress Notes Filed: 09/11/2021 8:58 PM Note Text: [facility] General Arthritis and Rheumatology Sarita Jones [address] [facility] [address] [place] [address] RHEUMATOLOGY PROGRESS NOTE Established Patient Patient presents with: Joint Pain: no pain today-usually only pain when active HPI: Andrew Lovelace is a 31 year old female who presents for follow up of reactive arthritis. She stopped plaquenil and prednisone and feels the same off of them. Swollen joints have largely subsided. Some achiness after walking . Some trapezius pain. Some ankle swelling and chest pains. ROS RHEUMATOLOGY CONSTITUTIONAL: Recent Weight change: No Fever: No EYES: Dryness in nose: No Dryness of mouth: No Oral ulcers: No CARDIOVASCULAR: Pain in chest: No RESPIRATORY: Shortness of breath: No Cough: No GASTROINTESTINAL: Nausea: No Vomiting: No Changes in bowel movements: No Jaundice: No Heartburn: No MUSCULOSKELETAL: Per HPI INTEGUMENTARY: Rash: No HEMATOLOGIC/LYMPHATIC: Anemia: No NEUROLOGICAL SYSTEM: Headaches: No Sensitivity or pain of hands and/or feet: No PSYCHIATRIC: Anxiety: No Poor sleep: No History reviewed. No pertinent past medical history. History reviewed. No pertinent surgical history. Employer And Job Title: None on file Years Of Education Completed: Not specified Marital Status: Unknown BP 114/78 (BP Site: Left Arm, BP Position: Sitting) Pulse 68 Temp 36.8 ?C (98.2 ?F) Ht 166.4 cm (5' 5.5 ) Wt 70.3 kg (155 lb) BMI 25.40 kg/m? Physical Exam GENERAL: Well appearing, alert, comfortable, in no acute distress, well-hydrated, well nourished. HEENT: Negative for external ears normal. Canals are clear. Both TMs visualized and are normal. Eye Exam normal. External nose normal, no nasal ulcer or throat ulcer. NECK: NECK Supple, no adenopathy; thyroid symmetric, normal size, no bruits CARDIAC: regular rate and rhythm, No murmur asculated. and Equal peripheral pulses RESPIRATORY: Lungs clear to auscultation. No wheezing, rhonchi, rales VASCULAR: RRR without murmur, gallop, or rubs. No ectopy. NEURO: Motor and sensory exam normal MOTOR: Normal; including tone, gait, stressed gait, power and coordination. SKIN: Negative for alopecia, skin rash, malar rash, skin lesion, skin ulcer, pits, thickening, color changes, telangiectasias, nail changes, nail ridging, nail pitting, onycholysis MUSCULOSKELETAL: DIPS: Normal PIPS: Normal MCPs: Normal Wrists: Normal Elbows: Normal Shoulders: Normal C-Spine: Normal Hips: Normal Knees: Normal Ankles: Normal MTPs / Toes: Normal Arches: Normal Lab Results: WSR 17 06/23/2021 Radiology: Assessment and Plan Reactive arthritis has subsided. No need to return unless symptoms reoccur. No orders found for this visit on 09/11/21. No orders of the defined types were placed in this encounter. No follow-ups on file. I spent a total of 10 minutes on the date of the service which included preparing to see the patient, [id number] patient care, completing clinical documentation, performing a medically appropriate examination, counseling and educating the patient/family/caregiver and independently interpreting results (not separately reported). Sarita Jones MD September 11, 2021 8:54 PM Medical Decision Making [facility] 06-23-2021 Note HNO ID: [id number] Author: RT Chandler(R) Service: ? 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 FALL SCREENING: Has the patient had 2 falls in the last year or 1 fall with injury or currently using an Ambulatory Assistive Device (Walker, Cane, Wheelchair, Crutches, etc.)? No PATIENT GENDER DATA: Female. status: : No status: NO. PATIENT RELEVANT IMPLANT DATA REVIEWED: Yes RADIOLOGY DEPARTMENT: General X-ray: Exam(s) Completed: Chest X-Ray Upper Extremity X-Ray(s): Hand, right PERIPHERAL IV DATA: Not applicable SIGNED BY: RT Chandler(R) June 23, 2021 4:33 PM [facility] 06-20-2021 Note HNO ID: [id number] Author: Sarita Russ MD Service: ? Author Type: Physician Type: Progress Notes Filed: 06/24/2021 11:47 AM Note Text: [facility] General Arthritis and Rheumatology Sarita Jones [address] [facility] [address] [place] [address] RHEUMATOLOGY PROGRESS NOTE Established Patient Patient presents with: Joint Pain: doing much better while on prednisone HPI:Patient presented with feer chills and diarrhea in January 2021. Immediately after that, developed joint pains which did not resolve. I started prednisone and motrin and she has improved. But she still is experiencing some joint pains and swelling. Stool studies for enteric pathogens was negative. Interval Review of Systems ROS RHEUMATOLOGY CONSTITUTIONAL: Recent Weight change: No Fever: No EYES: Dryness in nose: No Dryness of mouth: No Oral ulcers: No CARDIOVASCULAR: Pain in chest: No RESPIRATORY: Shortness of breath: No Cough: No GASTROINTESTINAL: Nausea: No Vomiting: No Changes in bowel movements: No Jaundice: No Heartburn: No MUSCULOSKELETAL: Per HPI INTEGUMENTARY: Rash: No HEMATOLOGIC/LYMPHATIC: Anemia: No NEUROLOGICAL SYSTEM: Headaches: No Sensitivity or pain of hands and/or feet: No PSYCHIATRIC: Anxiety: No Poor sleep: No History reviewed. No pertinent past medical history. History reviewed. No pertinent surgical history. Employer And Job Title: None on file Years Of Education Completed: Not specified Marital Status: Unknown BP 118/78 (BP Site: Left Arm, BP Position: Sitting) Pulse 68 Temp 36.8 ?C (98.3 ?F) Ht 166.4 cm (5' 5.5 ) Wt 67.6 kg (149 lb) BMI 24.42 kg/m? Physical Exam GENERAL: Well appearing, alert, comfortable, in no acute distress, well-hydrated, well nourished. HEENT: Negative for external ears normal. Canals are clear. Both TMs visualized and are normal. Eye Exam normal. External nose normal, no nasal ulcer or throat ulcer. and Ear Exam: Deferred NECK: NECK Supple, no adenopathy; thyroid symmetric, normal size, no bruits CARDIAC: regular rate and rhythm, No murmur asculated. and Equal peripheral pulses RESPIRATORY: Unlabored on room air Lungs clear to auscultation. No wheezing, rhonchi, rales VASCULAR: {[facility] HEART EXAM:[id number]:: RRR without murmur, gallop, or rubs. NEURO: Motor and sensory exam normal SKIN: Negative for alopecia, skin rash, malar rash, skin lesion, skin ulcer, pits, thickening, color changes, telangiectasias, nail changes, nail ridging, nail pitting, onycholysis MUSCULOSKELETAL: Swelling on the top of the left foot. Swelling in the palmar area of the left thumb MP joint. Tenderness in the sternoclavicular joints. Knees normal Radiology: Assessment and Plan (M13.0) Polyarthritis (primary encounter diagnosis) Possible reactive arthritis. Office Visit on 06/20/21 - XR HAND GENERAL 3V PA/LAT/OBL RT - TRANSGLUTAMINASE ABS - GLIADIN (DEAMINATED) ABS - SED RATE WESTERGREN - ANTI NEUTRO CYTO AB - G6PD QUANT Medication orders placed this encounter hydrOXYchloroQUINE (PLAQUENIL) 200 mg tablet Sig: Take 1 tablet by mouth twice daily. Dispense: 180 tablet Refill: 1 Return in about 2 months (around 08/20/2021) for in office followup. I spent a total of 30 minutes on the date of the service which included preparing to see the patient, [id number] patient care, completing clinical documentation, obtaining and/or reviewing separately obtained history, performing a medically appropriate examination, counseling and educating the patient/family/caregiver, ordering medications, tests, or procedures, communicating with other HCPs (not separately reported) and independently interpreting results (not separately reported). Sarita Jones MD June 20, 2021 7:07 PM Medical Decision Making [facility] 05-29-2021 Note HNO ID: [id number] Author: Sarita Russ MD Service: ? Author Type: Physician Type: Progress Notes Filed: 05/29/2021 7:20 PM Note Text: VIRTUAL VISIT PROGRESS NOTE This is a virtual visit using Ku video visit. It required patient-provider interaction for the medical decision making as documented below. Andrew Carmen is a 30 year old female seen for joint pains. On February 03, jacinto had fever and chills and diarrhea. She then got the same symptoms. She was sick for 9 days. Diarrhea, fever and chills. COVID was negative in both. 10 days later she had left foot pain. xrays were normal She needed to use crutches for 2 days. After that, she got pains in her shoulders and back . She has Chest pain now and top of shoulder hurt. Feels pain in her c hest. Left foot MRI is normal Right ankle hurts and swollen. Right thumb is swollen and red in the MP joint. 10 mg of prednisone makes it bearable. Primary care started a medrol dose pack. This helped, but as steroids tapered, pain returned. Ibuprofen also helped, but not taking now. Lab work done : results show elevated Sed Rate. 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 vavoline oil Stress because she Lost her job. next mom Mother diagnosed with uterine cacner. One lymph node +. No more fevers, no rashes or diarrhea. 2 weeks ago. Got J and J vaccine. Raynaud's in high school. Vestura. Oral contraceptive. Very healthy. No previous medical problems. HISTORY REVIEWED (electronic chart updated): No past medical history on file. No past surgical history on file. No family history on file. Social History Tobacco Use - Smoking status: Not on file Substance Use Topics - Alcohol use: Not on file - Drug use: Not on file No current outpatient medications on file. No current facility-administered medications for this visit. ALLERGIES Not on File REVIEW OF SYSTEMS: No psoriais. PHYSICAL EXAMINATION: No facial rash. Swelling and redness in the right thumb MP joint MRI of foot shows soft tissue swelling and perhaps tenosynovitis of the extensor tendons. ASSESSMENT: Reactive arthritis perhaps. COVID negative diarrhea? PLAN: [facility] on 05/29/21 - XR CHEST 2V FRONTAL/LAT - TSH BLD - TOREY BY IFA SCREEN - S. CEREVISIAE IGG AND IGA - CULTURE, YERSINIA - STOOL CULTURE/EIA - STOOL CULTURE - STOOL CULTURE Lower prednisone and start NSAID. Sarita Jones MD No orders found for this visit on 05/29/21. No orders of the defined types were placed in this encounter. I spent a total of 40 minutes on the date of the service which included preparing to see the patient, [id number] patient care, completing clinical documentation, obtaining and/or reviewing separately obtained history, performing a medically appropriate examination, counseling and educating the patient/family/caregiver, ordering medications, tests, or procedures, communicating with other HCPs (not separately reported), independently interpreting results (not separately reported) and communicating results to the patient/family/caregiver. Sarita Jones MD May 29, 2021 11:15 AM Provider Location: [facility] Facility Patient Location: Patient Home or Place of Residence Medical Decision Making [facility] 05-29-2021 Instructions Sarita Kirk MD - 05/29/2021 12:38 PM EDT Take prednisone 7.5 mg once daily and ibuprofen 600 4 times/ day until your visit. Blood tests and stool cultures documented in this encounter [facility] 05-29-2021 History of Present illness Narrative VIRTUAL VISIT PROGRESS NOTE This is a virtual visit using Ku video visit. It required patient-provider interaction for the medical decision making as documented below. Andrew Carmen is a 30 year old female seen for joint pains. On February 03, jacinto had fever and chills and diarrhea. She then got the same symptoms. She was sick for 9 days. Diarrhea, fever and chills. COVID was negative in both. 10 days later she had left foot pain. xrays were normal She needed to use crutches for 2 days. After that, she got pains in her shoulders and back . She has Chest pain now and top of shoulder hurt. Feels pain in her c hest. Left foot MRI is normal Right ankle hurts and swollen. Right thumb is swollen and red in the MP joint. 10 mg of prednisone makes it bearable. Primary care started a medrol dose pack. This helped, but as steroids tapered, pain returned. Ibuprofen also helped, but not taking now. Lab work done : results show elevated Sed Rate. 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 vavoline oil Stress because she Lost her job. next mom Mother diagnosed with uterine cacner. One lymph node +. No more fevers, no rashes or diarrhea. 2 weeks ago. Got J and J vaccine. Raynaud's in high school. Vestura. Oral contraceptive. Very healthy. No previous medical problems. HISTORY REVIEWED (electronic chart updated): No past medical history on file. No past surgical history on file. No family history on file. Social History Tobacco Use Smoking status: Not on file Substance Use Topics Alcohol use: Not on file Drug use: Not on file No current outpatient medications on file. No current facility-administered medications for this visit. ALLERGIES Not on File REVIEW OF SYSTEMS: No psoriais. PHYSICAL EXAMINATION: No facial rash. Swelling and redness in the right thumb MP joint MRI of foot shows soft tissue swelling and perhaps tenosynovitis of the extensor tendons. ASSESSMENT: Reactive arthritis perhaps. COVID negative diarrhea? PLAN: [facility] on 05/29/21 XR CHEST 2V FRONTAL/LAT TSH BLD TOREY BY IFA SCREEN S. CEREVISIAE IGG & IGA CULTURE, YERSINIA STOOL CULTURE/EIA STOOL CULTURE STOOL CULTURE Lower prednisone and start NSAID. Sarita Jones MD No orders found for this visit on 05/29/21. No orders of the defined types were placed in this encounter. I spent a total of 40 minutes on the date of the service which included preparing to see the patient, [id number] patient care, completing clinical documentation, obtaining and/or reviewing separately obtained history, performing a medically appropriate examination, counseling and educating the patient/family/caregiver, ordering medications, tests, or procedures, communicating with other HCPs (not separately reported), independently interpreting results (not separately reported) and communicating results to the patient/family/caregiver. Sarita Jones MD May 29, 2021 11:15 AM Provider Location: [facility] Facility Patient Location: Patient Home or Place of Residence Medical Decision Making documented in this encounter [facility] Diagnosis Generalized anxiety disorder- Primary Nonintractable headache, unspecified chronicity pattern, unspecified headache type [facility] Diagnosis Generalized anxiety disorder- Primary Nonintractable headache, unspecified chronicity pattern, unspecified headache type [facility] 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 Pre-procedural examination Unspecified pre-operative examination [facility] Diagnosis Anxiety Anxiety state, unspecified [facility] Diagnosis [facility]ized [facility] disorder- [facility] Diagnosis Generalized anxiety disorder- Primary [facility] Diagnosis Anxiety Anxiety state, unspecified [facility] Diagnosis control counseling- Primary 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 * Colpos[facility] (Maori) [facility] Attachments The following attachments cannot be sent through Care Everywhere. * Colposcopy (Maori) documented in this [facility] Summary Purpose Family History No Family History Records FoundNo Family History Records FoundNo Family History Records FoundNo Family History Records FoundNo Family History Records Found Advance Directives No Advanced Directives Records FoundNo Advanced Directives Records FoundNo Advanced Directives Records FoundNo Advanced Directives Records FoundNo Advanced Directives Records Found Additional Source Comments INFORMATION SOURCE (unrecogn ized section and content) DATE CREATED AUTHOR AUTHOR'S ORGANIZ ATION 09/16/2021 [facility] DATE CREATED AUTHOR AUTHOR'S ORGANIZ ATION 12/21/2021 [facility] DATE CREATED AUTHOR AUTHOR'S ORGANIZ ATION 05/19/2023 [facility] DATE CREATED AUTHOR AUTHOR'S ORGANIZ ATION 11/14/2023 [facility] Source Comments (unrecognize d section and content) In the event this informatio n is protected by the Federal Confidentiality of Alcohol and Drug Abuse Patient Records regulations: The Federal rules restrict any use of the information to criminally investigate or prosecute any alcohol or drug abuse patient.[facility] Reason for Visit (unrecogniz ed section and content) Reason Comments Follow-up 2 month medication f ollow up Reason Comments Procedure colp Reason Onset Date Comments Med Refill 03/08/2023 Reason Onset Date Comments Prior Authorization 02/13/2023 OCP Reason Comments Follow-up Discuss anxiety and meds Reason Comments Med Refill Reason Comments Follow-up Interested in IUD Care Teams (unrecognized sec tion and content) Wheel And Axle Inspector Relationship Specialty Start Date End Date Amrik Ch MD [address] [place] [address] PCP - General Family Medicine 11/28/22 Wheel And Axle Inspector Relationship Specialty Start Date End Date Amrik Ch MD [address] [place] [address] PCP - General Family Medicine 11/28/22 Wheel And Axle Inspector Relationship Specialty Start Date End Date Amrik Ch MD [address] [place] [address] PCP - General Family Medicine 11/28/22 Wheel And Axle Inspector Relationship Specialty Start Date End Date Amrik Ch MD [address] [place] [address] PCP - General Family Medicine 11/28/22 Wheel And Axle Inspector Relationship Specialty Start Date End Date Esa Burgos MD [address] [place] [address] PCP - General Family Medicine 05/01/23 Wheel And Axle Inspector Relationship Specialty Start Date End Date Esa Burgos MD [address] [place] [address] PCP - General Family Medicine 05/01/23 Wheel And Axle Inspector Relationship Specialty Start Date End Date Esa Burgos MD [address] [place] [address] PCP - General Family Medicine 05/01/23 FOR RECORDS PERTAINING TO PATIENTS WHO ARE OR HAVE BEEN ENROLLED IN A CHEMICAL DEPENDENCY/SUBSTANCEABUSE PROGRAM, SOME INFORMATION MAY BE OMITTED. This clinical summary was aggregated from multiple sources. Caution should be exercised in using it in the provision of clinical care. This summary normalizes information from multiple sources, and as a consequence, information in this document may materially change the coding, format and clinical context of patient data. In addition, data may be omitted in some cases. CLINICAL DECISIONS SHOULD BE BASED ON THE PRIMARY CLINICAL RECORDS. [facility]. provides no warranty or guarantee of the accuracy or completeness of information in this document.
[2023-11-15 15:46] LABS: Absolute Lymphocyte Count 3.97 X10^3/uL (0.83-4.51); Absolute Neutrophil Count 4.8 X10^3/uL (2.0-7.7); Basophil# 0.08 X10^3/uL; Basophil% 0.8 % (0-1); Eosinophil# 0.18 X10^3/uL; Eosinophils% 1.8 % (0-5); Hematocrit 39.2 % (37-47); Hemoglobin 12.8 g/dL (12.0-15.0); Lymphocyte # 3.97 X10^3/ul (0.83-4.51); Lymphocyte % 40.1 % (19-41); Mean Corp Hgb Conc 32.7 g/dL (32-36); Mean Corpuscular Hgb 30.5 pg (27.0-32.0); Mean Corpuscular Volume 93.6 fL (81-99); Mean Platelet Vol. 10.5 fl (6.2-12.0); Monocyte# 0.84 X10^3/uL; Monocyte% 8.5 % (0-10); NRBC Flagged by Analyzer 0 % (0-5); Neutrophil % 48.6 % (47-70); Platelet Count 338 K/mm3 (150-450); RBC Distribution Width CV 12.6 % (11.6-14.6); RBC Distribution Width SD 43.4 fl (35.1-43.9); Red Blood Count 4.19 M/mm3 (4.2-5.4); White Blood Count 9.9 K/mm3 (4.4-11.0)
[2023-11-15 16:25] LABS: Erythrocyte Sedimentation Rate 18 mm/hr (0-30)
[2023-11-15 17:07] LABS: ALB/GLOB Ratio 0.8 RATIO (0.9-2.4); AST(SGOT) 21 U/L (15-37); Alanine Aminotransfer ALT/SGPT 23 U/L (13-56); Albumin, Serum 3.3 g/dL (3.2-5.0); Alkaline Phosphatase 73 U/L (45-117); Anion Gap 6 (5-15); BUN 10 mg/dL (7-18); BUN/Creat Ratio 14.1 RATIO (10-20); Calcium,Total 10.2 mg/dL (8.5-10.1); Chloride 107 mmol/L (98-107); Creatinine, Serum 0.71 mg/dL (0.55-1.02); EST Glomerular Filtration Rate 102 mL/min (>60); Est Glom Filt Rate - Afr Amer 123 mL/min (>60); Free T3 2.8 pg/mL (2.18-3.98); Glucose 79 mg/dL (74-106); Potassium 3.9 mmol/L (3.5-5.1); Protein, Total 7.3 g/dL (6.4-8.2); Sodium Level 136 mmol/L (136-145); T4 Free Direct 1.14 ng/dL (0.76-1.46); Thyroid Stim Hormone (TSH) 3.68 uIU/mL (0.358-3.74)
[2023-11-18 09:30] LABS: PTHIN 64.4 pg/mL (18.4-80.1)
[2023-11-19 12:07] LABS: ANTINUCLEAR ANTIBODIES DIRECT Negative (Negative); Anti-dsDNA Ab 2 IU/mL (0-9)
[2023-11-19 13:07] LABS: Complement CH50 > 60 U/mL (>41); Thyroid Peroxidase AB 12 IU/mL (0-34)
== END | disposition home or self-care (01) ==
LOC: LAB 14:23
PROVIDERS: PCP Internal Medicine; Referring Provider Dermatology Pediatric Dermatology; Visit Provider Dermatology Pediatric Dermatology
DX: L71.8 Other rosacea (principal); M35.1 Other overlap syndromes; I73.81 Erythromelalgia; I48.91 Unspecified atrial fibrillation; M12.9 Arthropathy, unspecified; B88.0 Other acariasis
CPT/HCPCS: 36415; 80053; 82627; 83970; 84439; 84443; 84481; 85025; 85652; 86038; 86162; 86225; 86376; 82626

== ENCOUNTER → 2024-04-01 | Outpatient (CLI) | payer BC, SELFPAY ==
[2024-04-01 15:50] LABS: Calcium,Total 10.8 mg/dL (8.5-10.1); Phosphorus 2.6 mg/dL (2.5-4.9)
[2024-04-01 15:56] LABS: Vitamin B12 632 pg/mL (211-911); Vitamin D,25 Hydroxy 32.6 ng/mL
[2024-04-01 16:06] LABS: PTHIN 64.8 pg/mL (18.4-80.1)
== END | disposition home or self-care (01) ==
PROVIDERS: PCP Internal Medicine; Referring Provider Internal Medicine Endocrinology, Diabetes & Metabolism; Visit Provider Internal Medicine Endocrinology, Diabetes & Metabolism
DX: E21.3 Hyperparathyroidism, unspecified (principal); R20.2 Paresthesia of skin; E55.9 Vitamin D deficiency, unspecified
CPT/HCPCS: 36415; 82306; 82310; 82607; 83970; 84100

== ENCOUNTER → 2025-04-10 | Outpatient (CLI) | payer BC, SELFPAY ==
[2025-04-10 13:26] LABS: 24HR UR TOTAL VOLUME 1350 ml
[2025-04-10 13:27] LABS: (24 HR) Urine Calcium 198.5 mg/24 HR (42.0-353.0); Calcium Urine pH Range 2; Urine Calcium (Random) 14.7 mg/dL (Not Estab.)
== END | disposition home or self-care (01) ==
LOC: LABSPEC 10:14
PROVIDERS: PCP Internal Medicine; Referring Provider Internal Medicine Endocrinology, Diabetes & Metabolism; Visit Provider Internal Medicine Endocrinology, Diabetes & Metabolism
DX: E21.3 Hyperparathyroidism, unspecified (principal)
CPT/HCPCS: 81050; 82340

== ENCOUNTER 2025-05-04 15:37 | Outpatient (CLI) | payer BC, SELFPAY ==
[2025-05-04 16:29] LABS: PTHIN 66 pg/mL (11-61)
[2025-05-04 17:06] LABS: ALB/GLOB Ratio 1.3 RATIO (0.9-2.4); AST(SGOT) 24 U/L (<=31); Alanine Aminotransfer ALT/SGPT 20 U/L (<=34); Albumin, Serum 4.1 g/dL (3.5-5.0); Alkaline Phosphatase 125 U/L (35-104); Anion Gap 11 (5-15); BUN 14 mg/dL (4-19); BUN/Creat Ratio 16.2 RATIO (10-20); Calcium,Total 10.1 mg/dL (7.6-11.0); Carbon Dioxide 21.5 mmol/L (21.0-32.0); Chloride 105 mmol/L (98-108); Creatinine, Serum 0.89 mg/dL (0.70-1.20); EST Glomerular Filtration Rate 88 (>60); Glucose 91 mg/dL (70-99); Potassium 3.7 mmol/L (3.3-5.1); Protein, Total 7.1 g/dL (5.9-8.4); Sodium Level 138 mmol/L (133-145); Total Bilirubin 0.36 mg/dL (0.00-1.30); Vitamin D,25 Hydroxy 20.5 ng/mL (30-100)
== END 2025-05-04 23:59 | disposition home or self-care (01) ==
LOC: MEDOUTP 15:39
PROVIDERS: PCP Internal Medicine; Referring Provider Internal Medicine Endocrinology, Diabetes & Metabolism; Visit Provider Internal Medicine Endocrinology, Diabetes & Metabolism
DX: E11.9 Type 2 diabetes mellitus without complications (principal); E03.9 Hypothyroidism, unspecified; E21.3 Hyperparathyroidism, unspecified
CPT/HCPCS: 80053; 82306; 83970